=== PATIENT | female | born 1980 | race Caucasian/White ===

== ENCOUNTER 2018-05-30 15:19 | Emergency (ER) | payer BC ==
--- NOTE | 2018-05-30 16:28 | ER Document Report ---
ED Medical Screen (RME) - General Chief Complaint: Vag Bleeding, +preg <12wks Stated Complaint: VAGINAL BLEEDING Time Seen by Provider: 05/30/18 16:20 Notes: RAPID MEDICAL EVALUATION DISCLOSURE I have seen this patient as part of a Rapid Medical Evaluation and, if applicable, placed any initially appropriate orders. The patient will be seen and fully evaluated, including a full history and physical exam, by a provider (in Main ED or Fast Track) when a room becomes available. 38-year-old female here with complaints of lower abdominal discomfort/cramping and vaginal bleeding that started today. She has noticed some " symptoms" over the past few weeks including nausea and tender breasts and thought she may be so she took a test yesterday which was positive. EXAM CTAB RRR No abdominal TTP TRAVEL OUTSIDE OF THE [place] IN LAST 30 DAYS: No - Related Data Allergies/Adverse Reactions: No Known Allergies Allergy (Unverified 05/30/18 15:23) Past Medical History - General Last Menstrual Period: 04/26/2018 - Social History Chew tobacco use (# tins/day): No Frequency of alcohol use: None Drug Abuse: None - Past Medical History Cardiac Medical History: Reports: Hx Hypertension Renal/ Medical History: Denies: Hx Peritoneal Dialysis Psychiatric Medical History: Reports: Hx Depression Physical Exam - Vital signs Vitals: Temp Pulse Resp BP Pulse Ox 98.4 F 100 20 126/76 H 96 05/30/18 15:24 05/30/18 15:24 05/30/18 15:24 05/30/18 15:24 05/30/18 15:24 Course - Vital Signs Vital signs: Temp Pulse Resp BP Pulse Ox 98.4 F 100 20 126/76 H 96 05/30/18 15:24 05/30/18 15:24 05/30/18 15:24 05/30/18 15:24 05/30/18 15:24
[2018-05-30 17:31] LABS: ABSOLUTE BASOPHILS # (AUTO) 0.1 10^3/uL (0.0-0.2); ABSOLUTE EOSINOPHILS # (AUTO) 0.2 10^3/uL (0.0-0.6); ABSOLUTE LYMPHOCYTES (AUTO) 3.3 10^3/uL (0.5-4.7); ABSOLUTE MONOCYTES (AUTO) 0.5 10^3/uL (0.1-1.4); ABSOLUTE NEUT (AUTO) 6.1 10^3/uL (1.7-8.2); BASOPHILS % (AUTO) 0.6 % (0-2); HEMATOCRIT 40.4 % (36.0-47.0); HEMOGLOBIN 13.8 g/dL (12.0-15.5); LYMPHOCYTES % (AUTO) 32.3 % (13-45); MEAN CORPUSCULAR HEMOGLOBIN 30.3 pg (27.0-33.4); MEAN CORPUSCULAR HGB CONC 34.1 g/dL (32.0-36.0); MEAN CORPUSCULAR VOLUME 89 fl (80-97); MONOCYTES % (AUTO) 5.3 % (3-13); PLATELET COUNT 385 10^3/uL (150-450); RED BLOOD COUNT 4.55 10^6/uL (3.72-5.28); RED CELL DISTRIBUTION WIDTH 13.1 % (11.5-14.0); SEGMENTED NEUTROPHILS % (AUTO) 59.8 % (42-78); TOTAL CELLS COUNTED % (AUTO) 100 %; WHITE BLOOD COUNT 10.2 10^3/uL (4.0-10.5)
[2018-05-30 17:37] LABS: APPEARANCE,URINE CLEAR; BILIRUBIN,URINE NEGATIVE (NEGATIVE); COLOR,URINE YELLOW; GLUCOSE, URINE NEGATIVE (NEGATIVE); KETONES,URINE TRACE mg/dL (NEGATIVE); LEUKOCYTE ESTERASE,URINE NEGATIVE (NEGATIVE); NITRITE,URINE NEGATIVE (NEGATIVE); PROTEIN,URINE NEGATIVE (NEGATIVE); URINE SPECIFIC GRAVITY 1.012; UROBILINOGEN,URINE NEGATIVE mg/dL (<2.0)
[2018-05-30 17:51] LABS: ALANINE AMINOTRANSFERASE 25 U/L (9-52); ALBUMIN 4.4 g/dL (3.5-5.0); ALKALINE PHOSPHATASE 55 U/L (38-126); ANION GAP 11 (5-19); ASPARTATE AMINO TRANSFERASE 22 U/L (14-36); BILIRUBIN,DIRECT 0.2 mg/dL (0.0-0.4); BILIRUBIN,TOTAL 0.4 mg/dL (0.2-1.3); BLOOD UREA NITROGEN 9 mg/dL (7-20); CALCIUM 9.5 mg/dL (8.4-10.2); CARBON DIOXIDE 25 mmol/L (22-30); CHLORIDE 100 mmol/L (98-107); GLUCOSE 108 mg/dL (75-110); POTASSIUM 4.1 mmol/L (3.6-5.0); SODIUM 135.5 mmol/L (137-145); TOTAL PROTEIN 7.3 g/dL (6.3-8.2)
--- NOTE | 2018-05-30 19:51 | RADIOLOGY REPORT (SQ) ---
EXAM DESCRIPTION: U/S OB TRANSVAG W/DOPPLER COMPLETED DATE/TIME: 05/30/2018 7:39 pm REASON FOR STUDY: vag bleed, abd pain, preg LMP 04/21/2018 COMPARISON: None. TECHNIQUE: Transvaginal static and realtime grayscale images acquired of the pelvis. Additional noemy cted spectral and color Doppler images recorded. All images stored on PACs. bHCG: Not available. CLINICAL DATES: LMP 04/21/2018. 5 weeks 4 days. LIMITATIONS: None. FINDINGS: FETUS: Single Living intrauterine . ULTRASOUND EGA: 5 weeks 1 day by gestational sac size. ULTRASOUND THUAN: 01/29/2019 EFW: Not applicable less than 20 weeks. CRL: pole not seen. FHR: pole not seen. Beats per minute. SURVEY: Too early to assess. AMNIOTIC FLUID: Adequate amount. PLACENTA: Not yet developed due to early gestation. SUBCHORIONIC BLEED: Yes SIZE OF BLEED: 9 mm UTERUS: No masses. No anomalies. CERVICAL LENGTH: 2.4 cm. Closed. RIGHT ADNEXA: Normal ovary with normal vascular flow. 3 x 1.8 x 1.6 cm. No adnexal free fluid. No adnexal masses. LEFT ADNEXA: Ovary not seen. No adnexal free fluid. No adnexal masses. FREE FLUID: None. OTHER: No other significant finding. IMPRESSION: There is an early gestational sac of 5 weeks 1 day. pole is not yet seen. Follow -up as clinically indicated. Trimester of : First - 0 to 13 weeks. TECHNICAL DOCUMENTATION: JOB ID: [id number] [employer]- All Rights Reserved Reading location - IP/workstation name: [email or web address]
--- NOTE | 2018-05-30 20:37 | ER Document Report ---
ED General - General Chief Complaint: Vag Bleeding, +preg <12wks Stated Complaint: VAGINAL BLEEDING Time Seen by Provider: 05/30/18 16:20 Notes: Patient is a 38-year-old female presents to the emergency department complaining of vaginal bleeding. Patient states her last menstrual period was on April 21, 2018. Patient states she had missed her menses which is why she took an at-home test last night. States the test was positive. States last evening after urinating and wiping with toilet paper she did noticed some bright red blood on the toilet paper. Patient states she has not had to use any pads or tampons since then but has noted every time she urinates and wipes she has noted bright red blood. Patient is denying any abdominal pain. Patient is also denying dysuria, fever, vomiting. Past medical history: Hypertension, depression Medications: Benicar, Wellbutrin Allergies: None TRAVEL OUTSIDE OF THE [place] IN LAST 30 DAYS: No - Related Data Allergies/Adverse Reactions: No Known Allergies Allergy (Unverified 05/30/18 15:23) Past Medical History - General Information source: Patient Last Menstrual Period: 04/26/2018 - Social History Smoking Status: Never Smoker Chew tobacco use (# tins/day): No Frequency of alcohol use: None Drug Abuse: None Family History: Reviewed & Not Pertinent Patient has suicidal ideation: No Patient has homicidal ideation: No - Past Medical History Cardiac Medical History: Reports: Hx Hypertension Renal/ Medical History: Denies: Hx Peritoneal Dialysis Psychiatric Medical History: Reports: Hx Depression Review of Systems - Review of Systems Constitutional: No symptoms reported EENT: No symptoms reported Cardiovascular: No symptoms reported Respiratory: No symptoms reported Gastrointestinal: See HPI Genitourinary: See HPI Female Genitourinary: See HPI Musculoskeletal: No symptoms reported Skin: No symptoms reported Hematologic/Lymphatic: No symptoms reported Neurological/Psychological: No symptoms reported Physical Exam - Vital signs Vitals: Temp Pulse Resp BP Pulse Ox 98.4 F 100 20 126/76 H 96 05/30/18 15:24 05/30/18 15:24 05/30/18 15:24 05/30/18 15:24 05/30/18 15:24 - Notes Notes: GENERAL: Obese alert, interacts well. No acute distress. HEAD: Normocephalic, atraumatic. EYES: Pupils equal, round, and reactive to light. Extraocular movements intact. ENT: Oral mucosa moist, tongue midline. NECK: Full range of motion. Supple. Trachea midline. LUNGS: Clear to auscultation bilaterally, no wheezes, rales, or rhonchi. No respiratory distress. HEART: Regular rate and rhythm. No murmur ABDOMEN: Soft, non-tender. Non-distended. Bowel sounds present in all 4 qu adrants. EXTREMITIES: Moves all 4 extremities spontaneously. No edema, normal radial and dorsalis pedis pulses bilaterally. No cyanosis. BACK: no cervical, thoracic, lumbar midline tenderness. No saddle anesthesia, normal distal neurovascular exam. NEUROLOGICAL: Alert and oriented x3. Normal speech. cranial nerves II through XII grossly intact PSYCH: Normal affect, normal mood. SKIN: Warm, dry, normal turgor. No rashes or lesions noted. Course - Re-evaluation Re-evalutation: 05/30/18 20:54 Patient's labs revealed no signs of leukocytosis, no signs of anemia. Her beta hCG is 2727.40 and her transvaginal ultrasound does show an early gestational sac 5 weeks and 1 day. But no pole seen. She does have a 9 mm subcho rionic bleed noted. Her urine shows no signs of infection. Discussed ultrasound and lab results at length with patient at bedside. Discussed need to follow-up with [facility]PER[facility] and partake in pelvic rest. Patient voices understanding. Also discussed with her use of Benicar while . Discussed today's blood pressure was 126/76 she needs to stop taking Benicar and follow-up with [facility] for other options. Patient voices understanding. Also discussed use of Wellbutrin while . Patient states she has talking to her psychiatrist and she is opting to stay on Wellbutrin. Discussed again close follow-up with [facility]PER[facility]. Patient voices understanding. - Vital Signs Vital signs: Temp Pulse Resp BP Pulse Ox 98.2 F 96 18 120/78 100 05/30/18 20:48 05/30/18 20:48 05/30/18 20:48 05/30/18 20:48 05/30/18 20:48 - Laboratory Result Diagrams: 05/30/18 16:44 05/30/18 16:44 Laboratory results interpreted by me: 05/30/18 05/30/18 16:44 16:44 Sodium 135.5 L Beta HCG, Quant 2727.40 H Urine Ketones TRACE H Urine Blood SMALL H Urine Ascorbic Acid 40 H Discharge - Discharge Clinical Impression: Vaginal bleeding affecting early Subchorionic bleed Qualifiers: Fetus number: single or unspecified fetus Trimester: first trimester Qualified Code(s): O41.8X10 - Other specified disorders of amniotic fluid and membranes, first trimester, not applicable or unspecified Condition: Stable Disposition: HOME, SELF-CARE Instructions: Vaginal Bleeding ([facility]) Additional Instructions: As we discussed you have been seen and treated in the emergency department for vaginal bleeding during . At this point in time your ultrasound does show a living uterine . It is too early to see a heartbeat. You need to follow-up with [facility]PER[facility] as soon as possible. Please partake in pelvic rest. This means nothing goes inside the vagina. No tampons, fingers, penises, toys, anything. Also as we discussed you should stop taking your hypertension medication until you follow-up with [facility]PER[facility]. Please return to the emergency room for any other concerning symptoms. Referrals: CATE GAITAN FNP [Primary Care Provider] - Follow up as needed JAKE PALMA MD [ACTIVE STAFF] - Follow up as needed
[2018-05-30 20:49] VITALS: BP 120/78
== END 2018-05-30 20:50 | disposition home or self-care (01) ==
LOC: ER 15:19
DX: O41.8X10 Other specified disorders of amniotic fluid and membranes, first trimester, not applicable or unspecified (principal); O20.9 Hemorrhage in early pregnancy, unspecified; O10.911 Unspecified pre-existing hypertension complicating pregnancy, first trimester; Z3A.01 Less than 8 weeks gestation of pregnancy
CPT/HCPCS: 36415; 76817; 80053; 81001; 84702; 85025; 86900; 86901; 93976; 99284

== ENCOUNTER 2018-12-19 16:11 | Outpatient (CLI) | payer BC ==
--- NOTE | 2018-12-19 18:11 | Non Stress Test Report ---
Non Stress Test Datetime Report Generated by CPN: 12/19/2018 18:10 DEMOGRAPHIC EGA NST: 33.6 INDICATION Indication for Study: Diabetes Mellitus; Ordered by Provider VITAL SIGNS Pulse - NST: 105 RESP - NST: 18 NBPSYS NST: 138 NBPDIA NST: 74 MONITORING Monitor Explained: Monitor Explained; Test Explained; Patient Verbalized Understanding Time on Monitor: 12/19/2018 16:32 Time off Monitor: 12/19/2018 17:33 NST Duration: 61 NST INTERVENTIONS NST Interventions: PO Hydration; Reposition Patient Physician Notified NST: C. Cervantes CNM Physician Notified NST: cC CERVANTES, CNM REVIEWED STRIP BABY A: [id number] BABY A Movement : Present Contraction Frequency : none FHR Baseline : 130 Accelerations : 15X15 Decelerations : None Variability : Moderate 6-25bpm NST Review: Meets Criteria for Reactive NST NST Review and Verified By : Glen Patel RN NST Results: Reactive NST REPORT Report Trigger: Send Report
== END 2018-12-19 17:45 | disposition home or self-care (01) ==
LOC: LC 16:11
PROVIDERS: ATTEND Obstetrics & Gynecology
PROC: 4A1HXCZ Monitoring of Products of Conception, Cardiac Rate, External Approach (ICD-10-PCS; principal; 2018-12-19)
DX: O24.913 Unspecified diabetes mellitus in pregnancy, third trimester (principal); Z3A.33 33 weeks gestation of pregnancy
CPT/HCPCS: 59025

== ENCOUNTER 2018-12-30 14:04 | Outpatient (CLI) | payer BC ==
--- NOTE | 2018-12-30 15:53 | RADIOLOGY REPORT (SQ) ---
EXAM DESCRIPTION: U/S PROFILE W/NONSTRESS COMPLETED DATE/TIME: 12/30/2018 3:41 pm REASON FOR STUDY: BPP for well being COMPARISON: None. TECHNIQUE: Limited mallory-scale realtime and static images of the fetus to measure specified parameter s. LIMITATIONS: None. FINDINGS: HEART RATE: 131 beats per minute. LVP: 4.8 cm. BREATHING MOVEMENT: 2 points. MOVEMENT: 2 points. POSTURE AND TONE: 2 points. QUALITATIVE SIGRID: 2 points. OTHER: No other significant finding. IMPRESSION: BIOPHYSICAL PROFILE: 12/29. Trimester of : Third - 28 weeks to delivery COMMENT: BREATHING MOVEMENTS: 2 POINTS: PRESENT 0 POINTS: ABSENT MOTION: 2 POINTS: PRESENT 0 POINTS: ABSENT TONE: 2 POINTS: PRESENT 0 POINTS: ABSENT AMNIOTIC FLUID VOLUME: 2 POINTS: LARGEST POCKET GREATER THAN 2 CM DEPTH. 0 POINTS: NO POCKET OF 2 CM. TECHNICAL DOCUMENTATION: JOB ID: [id number] [employer]- All Rights Reserved Reading location - IP/workstation name: [email or web address]
== END 2018-12-30 16:06 | disposition home or self-care (01) ==
LOC: LC 14:04
PROVIDERS: ATTEND Obstetrics & Gynecology Gynecology
PROC: 4A1HXCZ Monitoring of Products of Conception, Cardiac Rate, External Approach (ICD-10-PCS; principal; 2018-12-30)
DX: O09.523 Supervision of elderly multigravida, third trimester (principal); Z3A.35 35 weeks gestation of pregnancy
CPT/HCPCS: 59025; 76818

== ENCOUNTER 2019-01-24 02:20 | Inpatient (IN) | payer BC ==
[2019-01-24] MEDS ORDERED: CEFAZOLIN SODIUM 3 GM in NORMAL SALINE 100 ML INJ PRN (06:19)
[2019-01-24 06:28] LABS: APPEARANCE,URINE CLEAR; BILIRUBIN,URINE NEGATIVE (NEGATIVE); COLOR,URINE YELLOW; GLUCOSE, URINE NEGATIVE (NEGATIVE); KETONES,URINE NEGATIVE (NEGATIVE); LEUKOCYTE ESTERASE,URINE NEGATIVE (NEGATIVE); NITRITE,URINE NEGATIVE (NEGATIVE); PROTEIN,URINE NEGATIVE (NEGATIVE); URINE SPECIFIC GRAVITY 1.014; UROBILINOGEN,URINE NEGATIVE mg/dL (<2.0)
[2019-01-24 06:38] LABS: ABSOLUTE EOSINOPHILS # (AUTO) 0.1 10^3/uL (0.0-0.6); ABSOLUTE LYMPHOCYTES (AUTO) 1.5 10^3/uL (0.5-4.7); ABSOLUTE MONOCYTES (AUTO) 0.4 10^3/uL (0.1-1.4); ABSOLUTE NEUT (AUTO) 4.5 10^3/uL (1.7-8.2); BASOPHILS % (AUTO) 0.7 % (0-2); EOSINOPHILS % (AUTO) 1.3 % (0-6); HEMATOCRIT 33.9 % (36.0-47.0); HEMOGLOBIN 11.4 g/dL (12.0-15.5); LYMPHOCYTES % (AUTO) 23.2 % (13-45); MEAN CORPUSCULAR HEMOGLOBIN 28.5 pg (27.0-33.4); MEAN CORPUSCULAR HGB CONC 33.7 g/dL (32.0-36.0); MEAN CORPUSCULAR VOLUME 85 fl (80-97); MONOCYTES % (AUTO) 5.9 % (3-13); PLATELET COUNT 223 10^3/uL (150-450); RED BLOOD COUNT 4.01 10^6/uL (3.72-5.28); RED CELL DISTRIBUTION WIDTH 15.7 % (11.5-14.0); SEGMENTED NEUTROPHILS % (AUTO) 68.9 % (42-78); TOTAL CELLS COUNTED % (AUTO) 100 %; WHITE BLOOD COUNT 6.6 10^3/uL (4.0-10.5)
[2019-01-24 06:44] LABS: URINE AMPHETAMINES SCREEN NEGATIVE; URINE BARBITURATES SCREEN NEGATIVE; URINE BENZODIAZEPINES SCREEN NEGATIVE; URINE COCAINE SCREEN NEGATIVE; URINE MARIJUANA (THC) SCREEN NEGATIVE; URINE METHADONE SCREEN NEGATIVE; URINE PHENCYCLIDINE SCREEN NEGATIVE
[2019-01-24] MEDS ORDERED: RINGERS SOLUTION,LACTATED 1,000 ML IV PRN ×2 (06:57→10:21)
[2019-01-24] MEDS ORDERED: RINGERS SOLUTION,LACTATED 1,500 ML IV ONE (07:00)
[2019-01-24] MEDS ORDERED: CEFAZOLIN INJ 1 GM VIAL ONE (07:04)
[2019-01-24] MEDS ORDERED: OXYTOCIN 10 UNIT/ML VIAL ONE (07:24)
[2019-01-24] MEDS ORDERED: CITRIC ACID/SODIUM CITRATE ORAL SOLN 15 ML UDCUP ONE (07:24)
[2019-01-24] MEDS ORDERED: FENTANYL CITRATE INJ/PF 100 MCG/2 ML AMPUL ONE ×2 (07:24→12:17)
[2019-01-24] MEDS ORDERED: ACETAMINOPHEN 325 MG TABLET ONE (07:24)
[2019-01-24] MEDS ORDERED: MIDAZOLAM 2 MG/2 ML INJ ONE (07:25)
[2019-01-24] MEDS ORDERED: EPHEDRINE SULFATE INJ 50 MG/1 ML AMPULE ONE ×2 (07:25→07:26)
[2019-01-24] MEDS ORDERED: OXYTOCIN/NORMAL SALINE 20 UNIT/1,000 ML RTUINJ ONE (07:25)
[2019-01-24] MEDS ORDERED: HEPARIN SOD (PORCINE) 5,000 UNIT/ML 1 ML VIAL SUBCUT ONE (07:53)
[2019-01-24] MEDS ORDERED: CARBOPROST TROMETHAMINE INJ 250 MCG/1 ML AMPULE ONE (09:00)
[2019-01-24] MEDS ORDERED: METHYLERGONOVINE MALEATE INJ/PF 0.2 MG/1 ML AMPULE ONE ×3 (09:00→09:10)
[2019-01-24] MEDS ORDERED: MISOPROSTOL 0.2 MG TABLET ONE (09:08)
[2019-01-24] MEDS ORDERED: PROMETHAZINE HCL INJ 25 MG/1 ML VIAL IV PRN ×3 (09:36→10:21)
[2019-01-24] MEDS ORDERED: DIPHENHYDRAMINE HCL 50 MG/ML VIAL IV PRN ×2 (09:36→11:00)
[2019-01-24] MEDS ORDERED: FENTANYL CITRATE INJ/PF 100 MCG/2 ML AMPUL IV PRN ×6 (09:36→11:00)
[2019-01-24] MEDS ORDERED: ACETAMINOPHEN 1,000 MG/100 ML RTUPB IV ONE (10:20)
[2019-01-24] MEDS ORDERED: SIMETHICONE 80 MG TAB.CHEW PO PRN (10:21)
[2019-01-24] MEDS ORDERED: DIPH/PERTUSS(ACELL)/TETANUS VAC/PF 0.5 ML SYR (>=10YO) IM PRN (10:21)
[2019-01-24] MEDS ORDERED: ACETAMINOPHEN 1,000 MG/100 ML RTUPB IV PRN (10:21)
[2019-01-24] MEDS ORDERED: OXYCODONE-ACETAMINOPHEN 5-325 MG TABLET PO PRN (10:21)
[2019-01-24] MEDS ORDERED: ACETAMINOPHEN 325 MG TABLET PO PRN (10:21)
[2019-01-24] MEDS ORDERED: OXYTOCIN/NORMAL SALINE 20 UNIT/1,000 ML RTUINJ IV PRN (10:21)
--- NOTE | 2019-01-24 10:31 | PDOC DELIVERY SUMMARY ---
Delivery Summary - Maternal Hx : III Hx Para: 0 Hx # Term Pregnancies: 1 Hx Total # of Abortions (Sponateous & Elective): 2 Number of Living Children: 0 THUAN: 01/31/19 Gestational Age: 39 Risk Factors: Gestational Diabetes, Other - Maternal obesity; chronic hypertension; advanced maternal age Ruptured Membranes: AROM Time of Rupture: 09:25 Fluids: Clear - Delivery Presentation: Vertex Heart Rate Monitoring: Done Pre-Operatively Uterine Contraction Monitoring: External Support Person Present: Yes Location: OR : Scheduled Placenta: Within Normal Limits Placenta Description: Normal appearing Number of Vessels (Cord): 3 Nuchal Cord: Yes Delivery of Placenta Date: 01/24/19 Delivery of Placenta Time: 09:27 Estimated Blood Loss: 800 Delivery Quantitative Blood Loss (QBL): 970 - Medications Type of Anesthesia:: Spinal - Infant Assess and Care Baby 1 Male Delivery of Date: 01/24/19 Delivery of Infant Time: 09:26 at 1 minute: 8 at 5 minutes: 9 Preprinted Number On Band: [id number] Infant Skin to Skin: Yes Skin to Skin (Mins): 5 To Nursery At: 09:26 Mode of Transport: Bassinet Infant Delivery Weight: 4,525 Delivery Length: 21 in - Delivery Personnel Nursery RN: LEXI MARTIN: GEMMA CH
[2019-01-24] MEDS ORDERED: MEPERIDINE HCL/PF INJ 25 MG/1 ML DISP.SYRIN ONE (10:35)
--- NOTE | 2019-01-24 10:36 | Operative Report ---
Operative Report DATE OF SURGERY: 01/24/19 PREOPERATIVE DIAGNOSIS: 1. Intrauterine at 39-0/7 weeks. 2. Chron ic hypertension. 3. Gestational diabetes (on insulin). 4. Morbid obesity. 5. GBS positive. 6. Advanced maternal age. 7. Rh+. 8. Rubella immune POSTOPERATIVE DIAGNOSIS: Same OPERATION: Primary low transverse section via Pfannenstiel SURGEON: GEMMA CLARK ANESTHESIA: Spinal TISSUE REMOVED OR ALTERED: Placenta COMPLICATIONS: None ESTIMATED BLOOD LOSS: 800 ml INTRAOPERATIVE FINDINGS: Male infant with a cephalic plus nuchal cord x1 presentation; Apgars 8 at 1, 95 with a weight of 10 pounds 0 ounces; normal uterus, bilateral tubes and ovaries PROCEDURE: The patient was taken to the operating room where spinal anesthesia was obtained and found to be adequate. She was then prepped and draped in the normal sterile fashion and placed in the dorsal supine position with a leftward tilt. A Pfannenstiel skin incision was then made and carried through to the underlying layers of the fascia with the scalpel. The fascia was incised in the midline and the incision extended laterally with the Fulton scissors. The superior aspect of the fascial incision was then grasped with Jaelyn clamps elevated and the underlying rectus muscles dissected off both bluntly and sharply. Attention was then turned to the inferior aspect of the fascial incision which in a similar fashion was grasped, tented up with Jaelyn clamps, and the rectus muscles dissected off both bluntly and sharply. The rectus muscles were then in the midline and the peritoneum was identified and entered both sharply. The peritoneal incision was then extended superiorly and inferiorly with good visualization of the bladder. The bladder blade was inserted and the vesicouterine peritoneum identified grasped with Ukrainian pickups and entered sharply with the Metzenbaum scissors. This incision was then extended laterally with the Metzenbaum scissors and a bladder flap created digitally. The bladder blade was then reinserted and the lower uterine segment incised in a transverse fashion with the scalpel. The uterine incision was then extended bluntly and with the bandage scissors. The bladder blade was removed and the 's head was delivered from cephalic presentation atraumatically. The cord doubly clamped and cut. The was handed off to waiting pediatricians. The placenta was then delivered manually and cleared of all clots and debris. The uterine incision was then repaired with 0 Vicryl in a running locked fashion. 0-Chromic was used to obtain hemostasis via imbrication of the initial layer. The bladder flap was then repaired with 3-0 Vicryl in a running fashion. Interceed was placed overlying the uterine incision, as well as a piece placed vertically on the anterior surface of the uterus, to prevent adhesions. Periton eum was then closed in a running fashion with 2-0 Vicryl. The gutters were cleared of all clots and debris. All operative sites were noted to be hemostatic. The fascia was reapproximated with 0 Vicryl in a running fashion from each lateral edge to the midline. The subcutaneous fat layer was then closed in an interrupted fashion with 3-0 vicryl. The skin was closed with 4-0 Monocryl in a running, subcuticular fashion. The patient tolerated the procedure well. Sponge, lap, needle and instrument counts are correct x 2. 3 g of Ancef were given prior to skin incision. The patient was taken to the recovery area awake and in stable condition.
[2019-01-24] MEDS: MEPERIDINE HCL/PF INJ 25 MG/1 ML DISP.SYRIN IV PRN ×2 (10:38→11:27)
[2019-01-24] MEDS ORDERED: PROMETHAZINE HCL INJ 25 MG/1 ML VIAL ONE (11:03)
[2019-01-24] MEDS ORDERED: HYDROMORPHONE HCL INJ/PF 2 MG/ML AMPULE ONE (11:04)
[2019-01-24] MEDS: HYDROMORPHONE HCL INJ/PF 2 MG/ML AMPULE IV PRN ×2 (11:05→19:45)
[2019-01-24] MEDS ORDERED: KETOROLAC TROMETHAMINE INJ/PF 30 MG/1 ML SDV IV SCH (14:00)
[2019-01-24] MEDS: OXYCODONE-ACETAMINOPHEN 5-325 MG TABLET PO PRN ×3 (14:06→22:14)
[2019-01-24] MEDS ORDERED: METOCLOPRAMIDE HCL INJ/PF 10 MG/2 ML SDV ONE (14:40)
[2019-01-24] MEDS ORDERED: ONDANSETRON HCL INJ/PF 4 MG/2 ML SDV ONE (14:40)
[2019-01-24] MEDS ORDERED: PHENYLEPHRINE HCL INJ/PF 10 MG/1 ML SDV ONE (14:40)
[2019-01-24] MEDS: DOCUSATE SODIUM 100 MG CAPSULE PO SCH (17:34)
[2019-01-24] MEDS: HEPARIN SOD (PORCINE) 5,000 UNIT/ML 1 ML VIAL SUBCUT SCH ×2 (17:34→21:23)
[2019-01-24] MEDS: IBUPROFEN 800 MG TABLET PO SCH ×3 (17:34→23:57)
[2019-01-25] MEDS: HYDROMORPHONE HCL INJ/PF 2 MG/ML AMPULE IV PRN (02:12)
[2019-01-25] MEDS: IBUPROFEN 800 MG TABLET PO SCH ×4 (05:11→23:57)
[2019-01-25] MEDS ORDERED: HEPARIN SOD (PORCINE) 5,000 UNIT/ML 1 ML VIAL SUBCUT ONE (05:45)
[2019-01-25 06:09] LABS: HEMOGLOBIN 10.1 g/dL (12.0-15.5); MEAN CORPUSCULAR HEMOGLOBIN 28.9 pg (27.0-33.4); MEAN CORPUSCULAR HGB CONC 33.6 g/dL (32.0-36.0); MEAN CORPUSCULAR VOLUME 86 fl (80-97); PLATELET COUNT 179 10^3/uL (150-450); RED BLOOD COUNT 3.48 10^6/uL (3.72-5.28); RED CELL DISTRIBUTION WIDTH 16.1 % (11.5-14.0); WHITE BLOOD COUNT 6.7 10^3/uL (4.0-10.5)
[2019-01-25] MEDS: OXYCODONE-ACETAMINOPHEN 5-325 MG TABLET PO PRN ×4 (06:11→19:20)
[2019-01-25] MEDS: PRENATAL VITAMIN W DHA CAPSULE PO SCH (09:29)
[2019-01-25] MEDS: DOCUSATE SODIUM 100 MG CAPSULE PO SCH ×2 (09:29→17:29)
--- NOTE | 2019-01-25 11:09 | PDOC PROGRESS REPORT ---
Subjective-OB Progress Note for:: 01/25/19 Subjective: 38yo G3 now P1 s/p primary ppd1. Ambulating, voiding and . Reports pain well controlled with medication, no concerns today Physical Exam (OB) Vital Signs: Temp Pulse Resp BP Pulse Ox 98.0 F 115 H 18 134/87 H 98 01/25/19 07:37 01/25/19 07:37 01/25/19 07:37 01/25/19 07:37 01/25/19 07:37 Intake & Output 01/24/19 01/25/19 01/26/19 06:59 06:59 06:59 Intake Total 0 1600 360 Output Total 1075 Balance 0 525 360 Weight 167.5 kg - General General Appearance: Appears well In distress: None - PIH/Pre-Eclampsia DTR's: 2 + Clonus: Negative Headache: Absent Epigastric Pain: No Visual Changes: No - Dressing Removed: No Incision: Dressing Closure Type: Sutures - Lochia Lochia Amount: Scant < 10 ml Lochia Color: Rubra/Red - Abdomen Description: Tender, Soft Hernia Present: No Fundal Description: Firm, Midline Fundal Height: u/u - u/2 - Respiratory Respiratory Status: No respiratory distress - Extremities Upper extremity: Normal inspection Lower extremities: Normal inspection - Neurological Cognition: Normal Orientation: AAOx4 - Psychological Associated symptoms: Normal affect, Normal mood Objective-Diagnostic Laboratory: 01/25/19 05:54 01/25/19 05:54 WBC 6.7 RBC 3.48 L Hgb 10.1 L Hct 30.0 L MCV 86 MCH 28.9 MCHC 33.6 RDW 16.1 H Plt Count 179 Assessment and Plan(PN) - Assessment and Plan (1) Gestational diabetes mellitus (GDM) in childbirth, insulin controlled Is this a current diagnosis for this admission?: Yes Plan: normal glucose today, continue to monitor as ordered by MD (2) Acute blood loss anemia Is this a current diagnosis for this admission?: Yes Plan: increase dietary iron and FeSO4 BID (3) Chronic hypertension Is this a current diagnosis for this admission?: Yes Plan: mild range, continue to monitor for s/s of pre-e (4) Status post primary low transverse section Is this a current diagnosis for this admission?: Yes Plan: continue to monitor for s/s of infection - Time Spent with Patient Time with patient: 15-25 minutes Medications reviewed and adjusted accordingly: Yes - Disposition Anticipated Discharge: Home Within: within 24 hours
[2019-01-26] MEDS: OXYCODONE-ACETAMINOPHEN 5-325 MG TABLET PO PRN ×4 (01:15→20:33)
[2019-01-26] MEDS: IBUPROFEN 800 MG TABLET PO SCH ×3 (05:10→17:45)
[2019-01-26] MEDS: DOCUSATE SODIUM 100 MG CAPSULE PO SCH ×2 (09:18→17:44)
[2019-01-26] MEDS: PRENATAL VITAMIN W DHA CAPSULE PO SCH (09:18)
--- NOTE | 2019-01-26 10:52 | PDOC PROGRESS REPORT ---
Subjective-OB Progress Note for:: 01/26/19 Subjective: Pt doing well, ambulatory, reports voiding without difficulty, reg diet and +flatus. She is concerned about developing pre-eclampsia and doesn't feel safe going home today. Denies h/a, vis changes, abd pain. Physical Exam (OB) Vital Signs: Temp Pulse Resp BP Pulse Ox 97.7 F 112 H 18 136/69 H 99 01/26/19 09:25 01/26/19 09:25 01/26/19 09:25 01/26/19 09:25 01/26/19 09:25 Intake & Output 01/25/19 01/26/19 01/27/19 06:59 06:59 06:59 Intake Total 1600 360 Output Total 1075 Balance 525 360 Weight 167.5 kg - PIH/Pre-Eclampsia Headache: Absent Epigastric Pain: No Visual Changes: No - Dressing Removed: No Incision: Dressing Closure Type: opsite - Abdomen Description: Tender, Soft Hernia Present: No Fundal Description: Firm, Midline Fundal Height: u/u - u/2 Objective-Diagnostic Laboratory: 01/25/19 05:54 Assessment and Plan(PN) - Assessment and Plan (1) Morbid obesity Is this a current diagnosis for this admission?: Yes (2) Acute blood loss anemia Is this a current diagnosis for this admission?: Yes (3) Chronic hypertension Is this a current diagnosis for this admission?: Yes (4) Gestational diabetes mellitus (GDM) in childbirth, insulin controlled Is this a current diagnosis for this admission?: Yes (5) Status post primary low transverse section Is this a current diagnosis for this admission?: Yes - Time Spent with Patient Time with patient: Less than 15 minutes Medications reviewed and adjusted accordingly: Yes - Disposition Anticipated Discharge: Home Within: within 24 hours, within 48 hours
[2019-01-26] MEDS ORDERED: FUROSEMIDE 20 MG TABLET PO ONE (11:00)
[2019-01-27] MEDS: IBUPROFEN 800 MG TABLET PO SCH ×3 (00:18→11:42)
[2019-01-27] MEDS: OXYCODONE-ACETAMINOPHEN 5-325 MG TABLET PO PRN ×2 (01:56→07:28)
--- NOTE | 2019-01-27 09:04 | PDOC DISCHARGE SUMMARY ---
Final Diagnosis Discharge Date: 01/27/19 - POD #2, doing well, s/p Rpt , Hx GDM, CHTN, , O+, Rubella Immune - Final Diagnosis (1) Normal course Is this a current diagnosis for this admission?: Yes (2) Acute blood loss anemia Is this a current diagnosis for this admission?: Yes (4) Gestational diabetes mellitus (GDM) in childbirth, insulin controlled Is this a current diagnosis for this admission?: Yes (5) Morbid obesity Is this a current diagnosis for this admission?: Yes (6) Status post primary low transverse section Is this a current diagnosis for this admission?: Yes Discharge Data - Discharge Medication Prescriptions: Ibuprofen [Motrin 800 mg Tablet] 800 mg PO Q6 #60 tablet Oxycodone HCl/Acetaminophen [Percocet 5-325 mg Tablet] 1 tab PO Q4HP PRN #30 tablet PRN Reason: Pain Scale Of 3 Home Medications: Bupropion HCl [Wellbutrin Xl 300mg 24hr Tablet] 300 mg PO DAILY 01/24/19 Methyldopa 500 mg PO Q12 01/24/19 Vit/Dha [ Multi + Dha Capsule] 1 cap PO DAILY 01/24/19 Ibuprofen [Motrin 800 mg Tablet] 800 mg PO Q6 #60 tablet 01/27/19 Oxycodone HCl/Acetaminophen [Percocet 5-325 mg Tablet] 1 tab PO Q4HP PRN #30 tablet 01/27/19 Reason(s) for Admission: Ceasarean Section-Repeat Procedures: NST, Ultrasound, Management of Obstetric Complications Intrapartum Procedure(s): : Low Cervical, Transverse - Diagnosis Test Laboratory: Temp Pulse Resp BP Pulse Ox 98.6 F 112 H 16 147/89 H 99 01/27/19 00:13 01/27/19 00:13 01/27/19 00:13 01/27/19 00:13 01/27/19 00:13 01/24/19 01/24/19 01/25/19 06:10 06:24 05:54 RBC 4.01 3.48 L Hgb 11.4 L 10.1 L Hct 33.9 L 30.0 L Urine Opiates Screen NEGATIVE - Discharge information/Instructions Discharge Activity: Activity As Tolerated, No Driving, No Lifting Over 10 Pounds, Pelvic Rest Discharge Diet: As Tolerated, Regular Disposition: HOME, SELF-CARE Follow up with: [facility] in: 1, Weeks - for an incision check and for a BP check
[2019-01-27] MEDS: PRENATAL VITAMIN W DHA CAPSULE PO SCH (10:06)
[2019-01-27] MEDS: DOCUSATE SODIUM 100 MG CAPSULE PO SCH (10:06)
[2019-01-27 10:14] VITALS: BP 158/80
== END 2019-01-27 14:00 | disposition home or self-care (01) | DRG 787 ==
LOC: 2S 05:50
PROVIDERS: ADMIT Obstetrics & Gynecology; ATTEND Obstetrics & Gynecology
PROC: 10D00Z1 Extraction of Products of Conception, Low, Open Approach (ICD-10-PCS; principal; 2019-01-24 08:00)
DX: O24.425 Gestational diabetes mellitus in childbirth, controlled by oral hypoglycemic drugs (principal); O10.02 Pre-existing essential hypertension complicating childbirth; D62 Acute posthemorrhagic anemia; O99.214 Obesity complicating childbirth; O99.824 Streptococcus B carrier state complicating childbirth; O69.81X0 Labor and delivery complicated by cord around neck, without compression, not applicable or unspecified; O90.81 Anemia of the puerperium; E66.01 Morbid (severe) obesity due to excess calories; Z3A.39 39 weeks gestation of pregnancy; Z37.0 Single live birth
CPT/HCPCS: 1961; 36415; 59025; 80307; 81001; 82962; 85025; 85027; 86850; 86900; 86901; 88307; 94799; C1765; J0131; J1170; J1644; J2175; J2210; J2250; J2370; J2405; J2550; J2590; J2765; J3010; J3490; J7120